=== PATIENT | female | born 1990 | race Caucasian/White ===

== ENCOUNTER 2018-10-26 05:12 | Outpatient (CLI) | payer OTHER ==
[~2018-10-26] VITALS: Ht 172.7 cm; Wt 87.7 kg
== END 2018-10-26 06:50 | disposition home or self-care (01) ==
LOC: M LDO 05:12
PROVIDERS: ATTEND Obstetrics & Gynecology
DX: O26.893 Other specified pregnancy related conditions, third trimester (principal); R10.30 Lower abdominal pain, unspecified; O47.1 False labor at or after 37 completed weeks of gestation; Z3A.37 37 weeks gestation of pregnancy
CPT/HCPCS: 59025; G0378; G0463

== ENCOUNTER 2018-11-11 17:51 | Inpatient (IN) | payer OTHER ==
[~2018-11-11] VITALS: Ht 172.7 cm; Wt 87.8 kg
[2018-11-11] VITALS (34 sets, daily range): BP systolic 94–148; BP diastolic 48–79
[2018-11-11] MEDS ORDERED: LACTATED RINGER'S 1000 ML IV STA (18:47)
[2018-11-11] MEDS ORDERED: OXYTOCIN DRIP 30 UNITS in APPROPRIATE DILUENT 1 EA IV SCH (19:00)
--- NOTE | 2018-11-11 19:15 | HPEPDOC ---
Obstetrical History & Physical General Date of Admission Nov 11, 2018 at 18:44 History of Present Illness 28 yo @ 39+3 by LMP([id number]) and 11+4 wk US on [id number] presents to L&D Triage ambulatory d/t SROM of clear fluid. Reports regular CTXs. Denies DFM and vaginal bleeding. GBS positive. On entry to Triage noted to have 2 mild range BPs Chief Complaint: Contractions, term Information Provided By: Patient Age: 28 : 2 Term: 1 Pre-term: 0 Abortions: 0 Livin Care Care: Good Care (7 visits since 29 wks at Transfer of Care) Dating Final EDC: Nov 15, 2018 Final EDC for Daily Update: Nov 15, 2018 Final EDC by: LMP ([id number]), 1st trimester (US) (on 30APR2018) LMP: Feb 08, 2018 1st Trimester Date: Apr 30, 2018 Weeks + Days: 11.4 Estimated Date of Confinement: Nov 15, 2018 EGA at Admission: 39.3 Antepartum Course Diagnos(e)s JANIE @ 29+3 Height (inches): 68 Pre- weight (lbs.): 164 Admission Weight (lbs.): 195 Change in Weight (lbs.): 31 Past Medical History Past Obstetrical History : Past Obstetrical History: Multigravida Date of Delivery: December 03, 2016 Gestation: 40 Type of Delivery: Spontaneous Vaginal Del. Sex of : Male Weight of Infant (grams): 4167 Complications: No CRITICAL CARE NURSE SPECIALIST History: No pertinent history Past Medical History Surgical History: Denies/None Family History Significant Family History: No pertinent family hx Social History Marital Status: Family situation: Spouse/partner home Psychosocial History: No pertinent psych hx * Smoker: non-smoker Alcohol: Denies Drugs: denies Abuse Violence Screening Have you been hit/kicked/slapp: No Have you been sexually assault: No Imunizations Tdap status: current ([id number]) Influenza Status: current () Physical Examination Physical Examination GENERAL: A&O x 3 BREAST: . ABDOMEN: Gravid and non-tender to touch. FETUS: VTX by SVE and by Enzo. HEART RATE: RRR LUNGS: CTA EXTREMITIES: No edema. No clonus. DTR +1 EFW- 3800 grams Vital Signs/I&O Vital Signs Date Time Temp Pulse Resp B/P (MAP) Pulse Ox O2 Delivery O2 Flow Rate FiO2 11/11/18 18:03 97.8 79 18 143/75 (97) Laboratory Data CBC/BMP [id number] CBC-8.7/12.2/37.3/205 Urine Culture: Other (GBS positive) Pertinent Laboratoy Data Blood Type: O+ RBC Antibody Screen: Negative HIV: Negative Hepatitis B: Negative Hepatitis C: Unknown Rapid Plasma Reagin: Nonreactive Rubella: Immune Varicella: Immune Chlamydia/Gonorrhea: Negative Group B Streptococcus: Positive Glucose Tolerance Test: 87 Anatomy Ultrasound Ultrasound Date: Jun 28, 2018 Placenta Location: Anterior Normal Anatomy: Yes Placenta Previa: No Estimated Weight (grams): 354 Other Ultrasounds [id number], EFW-2759/57% Steroid Therapy Steroid Therapy: No Vaginal Examination Dilation: 4 cm Effacement: 70% Station: -3 Cervical Consistency: Soft Cervical Position: Anterior Presentation: Cephalic presentation Assessment Heart Rate (FHR): 120 Variability: Moderate Accelerations: Positive Decelerations: Early, Late Tocometer Contractions: Yes Frequency: regular, other (Q 3-5 min) Duration: less than 90 seconds Strength: palpated as moderate, resting tone palp/soft Multi-drug resistant Organism: No history of MDRO Assessment/Plan Assessment 28 yo @ 39+3 with regular CTXs. GBS positive. CAT II FHR tracing with mild range BPs Plan Admit and orient. Purchasing Agent and consent. Diet: clear liquid GBS positive Treat with PCN per unit protocol IV and labs per unit protocol. Pre-e BL labs Counseled on Pitocin IOL. LR: Bolus 1000 mL, then at 125 mL/hr. Anticipate [normal spontaneous delivery ()]. C-S as appropriate. ADELAIDA CHIANG CNM Nov 11, 2018 19:15
--- NOTE | 2018-11-11 19:16 | IPNPDOC ---
Text Note Date of Service The patient was seen on 11/11/18. NOTE SBAR to Dr. Wilkinson @ 1930 VS,Fernando, I+O VS, Fernando, I+O Vital Signs Date Time Temp Pulse Resp B/P (MAP) Pulse Ox O2 Delivery O2 Flow Rate FiO2 11/11/18 18:03 97.8 79 18 143/75 (97) ADELAIDA CHIANG CNM Nov 11, 2018 19:16
[2018-11-11] MEDS ORDERED: PENICILLIN G POTASSIUM 5 MU VIAL As Ordered ONE (20:06)
[2018-11-11 20:07] LABS: HEMATOCRIT 30.5 % (36.0-47.0); HEMOGLOBIN 9.8 g/dl (12.0-15.5); MEAN CORPUSCULAR HGB CONC 32.1 g/dl (32.0-36.5); PLATELET COUNT, AUTOMATED 203 10^3/uL (150-450); RED BLOOD COUNT 3.63 10^6/uL (4.00-5.40); WHITE BLOOD COUNT 13.1 10^3/uL (4.0-10.0)
[2018-11-11] MEDS ORDERED: PENICILLIN G POTASSIUM IV 5 MU in D5W MINI-BAG PLUS 100 ML IV STA (20:15)
[2018-11-11 20:16] LABS: CREATININE,RANDOM URINE 50.7 MG/DL; TOTAL PROTEIN,RANDOM URINE 10.6 MG/DL (0.0-12.0)
[2018-11-11 20:36] LABS: ALT/SGPT 21 U/L (12-78); LDH LACTATE DEHYDROGENASE 157 U/L (84-246); URIC ACID 4.1 MG/DL (2.6-6.0)
[2018-11-11] MEDS ORDERED: FENTANYL 2MCG/ML ROPIVACAINE 0.2% IN 0.9% NACL 100ML IVBAG As Ordered ONE (21:15)
[2018-11-11] MEDS ORDERED: ONDANSETRON 4 MG TAB (S0181) As Ordered ONE (21:15)
[2018-11-11] MEDS ORDERED: ONDANSETRON 4MG/2ML VIAL (J2405) As Ordered ONE (21:16)
[2018-11-11] MEDS ORDERED: FENTANYL/ROPIVACAINE/NACL BAG 100 ML EPIDURAL SCH (22:15)
[2018-11-11] MEDS ORDERED: NALOXONE INJ 0.4 MG/1 ML VIAL (J2310) IV PRN (22:15)
[2018-11-11] MEDS ORDERED: ONDANSETRON 4MG/2ML VIAL (J2405) IV PRN (22:15)
[2018-11-11] MEDS ORDERED: EPIDURAL/PCA KEYS XX PRN (22:15)
[2018-11-11] MEDS ORDERED: REFRIGERATOR IV KEYS XX PRN (22:15)
[2018-11-11] MEDS ORDERED: diphenhydrAMINE INJ 50MG/ML VIAL (J1200) IV PRN (22:15)
[2018-11-11] MEDS ORDERED: EPIDURAL COMMENT XX SCH (22:15)
[2018-11-11] MEDS ORDERED: ePHEDrine SULFATE 25 MG/5 ML(5MG/ML) SYRINGE IV PRN (22:15)
[2018-11-12] VITALS (18 sets, daily range): BP systolic 99–126; BP diastolic 52–63
[2018-11-12] MEDS ORDERED: PENICILLIN G POTASSIUM IV 2.5 MU in APPROPRIATE DILUENT 1 EA IV SCH (00:15)
--- NOTE | 2018-11-12 03:26 | IPNPDOC ---
Text Note Date of Service The patient was seen on 11/12/18. NOTE Intrapartum Note Hilda is a 28yo with SIUP at 39w4d who was admitted for mild range bp's in latent labor with plan for pitocin augmentation. She has done well since admi ssion, received an epidural and has been adequately treated for GBS with PCN. Currently comfortable with epidural. Vitals wnl, afebrile SCE 6/90/-2, AROM performed with clear fluid FHRT has been Cat I with mod linda, + accels, -decels. Immediately after AROM there was a prolonged FHR decel x3 minutes that recovered and now back to baseline with mod linda [place]: ctx q3-4min PIH labs were wnl, anemia noted on H/H, urine prot:creat is 0.2 Will continue pitocin per protocol Will continue PCN per protocol Will continue to closely observe Plan to recheck in 2hr or earlier as indicated Safe to proceed Dr. Rachel Wilkinson MD A-FIB/CHADSVASC A-FIB History Current/History of A-Fib/PAF?: No Current Oral Anticoagulant The: No VS,Fishbone, I+O VS, Fishbone, I+O Laboratory Tests 11/11/18 19:56 Red Blood Count 3.63 L, Mean Corpuscular Volume 84.0, Mean Corpuscular Hemoglobin 27.0, Mean Corpuscular Hemoglobin Concent 32.1, Red Cell Distribution Width 11.9 Vital Signs Date Time Temp Pulse Resp B/P (MAP) Pulse Ox O2 Delivery O2 Flow Rate FiO2 11/11/18 18:03 97.8 79 18 143/75 (97) Rachel Wilkinson MD Nov 12, 2018 03:26
--- NOTE | 2018-11-12 04:01 | IPNPDOC ---
Text Note Date of Service The patient was seen on 11/12/18. NOTE Intrapartum Note Pt comfortable with epidural but starting to feel some vaginal/rectal pressure. Vitals wnl, afebrile SCE /-1, urinary dick bulb pushed back behind head, amniotic fluid remains clear Cat I FHRT with ctx q2min Will continue to closely observe Plan to recheck in 2hr or earlier as indicated Safe to proceed Dr. Rachel Wilkinson MD A-FIB/NIRANJANVAS A-FIB History Current/History of A-Fib/PAF?: No Current Oral Anticoagulant The: No VS,Fishbone, I+O VS, Fishbone, I+O Laboratory Tests 11/11/18 19:56 Red Blood Count 3.63 L, Mean Corpuscular Volume 84.0, Mean Corpuscular Hemoglobin 27.0, Mean Corpuscular Hemoglobin Concent 32.1, Red Cell Distribution Width 11.9 Vital Signs Date Time Temp Pulse Resp B/P (MAP) Pulse Ox O2 Delivery O2 Flow Rate FiO2 11/12/18 03:08 97.5 62 18 119/57 (77) Rachel Wilkinson MD Nov 12, 2018 04:01
[2018-11-12] MEDS ORDERED: OXYTOCIN DRIP 30 UNITS in APPROPRIATE DILUENT 1 EA IV SCH (04:56)
[2018-11-12] MEDS ORDERED: IBUPROFEN 800 MG TAB PO PRN (05:00)
[2018-11-12] MEDS ORDERED: MEASLES,MUMPS,RUBELLA VACCINE INJ (MMR-II) (90707) SC SCH (05:00)
[2018-11-12] MEDS ORDERED: RHOGAM 300 MCG (1500 IU) INJ (J2790) IM SCH (05:00)
[2018-11-12] MEDS ORDERED: DIBUCAINE 1% OINTMENT 30GM TOP PRN (05:00)
--- NOTE | 2018-11-12 05:03 | DNPDOC ---
[facility] Delivery Note Delivery Note DATE OF DELIVERY: 12 Nov 2018 PREDELIVERY DIAGNOSIS: 39w4d gestation and labor. POST DELIVERY DIAGNOSIS: Delivered. PROCEDURE: Spontaneous vaginal delivery NAIL PULLER: Dr. Rachel Wilkinson MD ANESTHESIA: epidural ESTIMATED BLOOD LOSS: 200 mL. FINDINGS: 8 pound 0 ounce (3620g) male , Score 8/9 DELIVERY SUMMARY: Hilda is a 28yo [id number] s/p uncomplicated at 39w4d after presenting in latent labor and having pitocin augmentation, delivering at 04:38 on 12 November 2018. She received an epidural and made good progress, had AROM with clear fluid at 6cm. At C/C/0, she began pushing with excellent effort. head delivered OP, restituted ROP. Left anterior shoulder delivered easily (compound hand noted) followed by posterior shoulder and corpus. Small terminal meconium noted. Infant was vigorous with spontaneous cry, placed on maternal abdomen. Nose and mouth were suctioned with bulb suction, apgars 8/9. After approximately 2 minutes, cord was clamped x2 and cut by FOB. Cord blood obtained for MBT O positive. Uterine massage performed, traction on the umbilical cord, placenta delivered spontaneously and intact with 3 vessel centrally inserted cord. IV pitocin was given per protocol, bimanual massage was performed and uterus then firm at u-2cm. Inspection of perineum and vagina revealed small right labial abrasion and mayra at introitus, both repaired with separate figure of 8's using 3-0 vicryl with complete reapproximation/cosmesis/hemostasis. All counts correct x2. Total hemostasis assured. Mom and infant were doing well when I left the room. MD Jaja Coffman Katrina D MD Nov 12, 2018 05:03
[2018-11-12] MEDS: PRENATAL VITAMINS CHEWABLE TABLET PO SCH (08:35)
[2018-11-12] MEDS: DOCUSATE SODIUM 100 MG CAP PO PRN ×2 (12:20→20:57)
[2018-11-12] MEDS: ACETAMINOPHEN 500 MG TAB PO PRN (19:45)
[2018-11-13 06:21] VITALS: BP 122/58
--- NOTE | 2018-11-13 08:25 | DS.PDOC ---
Discharge Summary General Date of Admission Nov 11, 2018 at 18:44 Date of Discharge Nov 12, 2018 Discharge Summary HOSPITAL COURSE: Ms. Scales is a 28 yo G2 now P2 who underwent an uncomplicated on 12Nov2018 in the early childhood special educator hours after being admitted for active labor. Her course has been unremarkable. On her day of discharge she met all appropriate discharge criteria. She was ambulating, voiding, tolerating a regular diet, had minimal lochia, and had minimal pain. DISCHARGE MEDICATIONS: Please see below. ALLERGIES: Please see below. PHYSICAL EXAMINATION ON DISCHARGE: VITAL SIGNS: Please see below. GENERAL: AAOX3, sitting up in bed, NAD ABDOMINAL EXAMINATION: Fundus firm at U-2. No fundal tenderness. EXTREMITIES: No edema PSYCHIATRIC EXAMINATION: Affect appropriate ACTIVITY: Pelvic rest for 6 weeks DIET: Regular DISCHARGE PLAN: Discharge home on [id number] DISPOSITION: DC home. DISCHARGE INSTRUCTIONS: 1. Pelvic rest for 6 weeks. ITEMS TO FOLLOWUP ON ON OUTPATIENT: 1. appointment in 6 weeks. DISCHARGE CONDITION: Stable. TIME SPENT ON DISCHARGE: Greater than 20 minutes. Adrienne Clay DO Vital Signs/I&Os Vital Signs Date Time Temp Pulse Resp B/P (MAP) Pulse Ox O2 Delivery O2 Flow Rate FiO2 11/13/18 06:21 97.0 70 18 122/58 (79) Allergies Coded Allergies: No Known Allergies (Unverified , 11/11/18) ADRIENNE CLAY DO Nov 13, 2018 08:25
[2018-11-13] MEDS: PRENATAL VITAMINS CHEWABLE TABLET PO SCH (09:02)
[2018-11-13] MEDS: ACETAMINOPHEN 500 MG TAB PO PRN (09:03)
[2018-11-13] MEDS ORDERED: ACET-861 PO (10:20)
[2018-11-13] MEDS ORDERED: MULTTAB20 PO (10:20)
[2018-11-13] MEDS ORDERED: COLA100C5 PO (10:20)
[2018-11-13] MEDS ORDERED: IBUP200C33 PO (10:20)
== END 2018-11-13 15:05 | disposition home or self-care (01) | DRG 807 ==
LOC: M LDO 17:51 → M LDI 18:44 → M OBS 11-12 11:14
PROVIDERS: ADMIT Midwife; ATTEND Obstetrics & Gynecology
PROC: 10E0XZZ Delivery of Products of Conception, External Approach (ICD-10-PCS; principal; 2018-11-12)
PROC: 10907ZC Drainage of Amniotic Fluid, Therapeutic from Products of Conception, Via Natural or Artificial Opening (ICD-10-PCS; 2018-11-12)
DX: O99.824 Streptococcus B carrier state complicating childbirth (principal); Z37.0 Single live birth; Z3A.39 39 weeks gestation of pregnancy; O32.6XX0 Maternal care for compound presentation, not applicable or unspecified